=== PATIENT | female | born 1975 | race African-American/Black ===

== ENCOUNTER 2024-11-10 06:04 | Day surgery (SDC) | payer OTHER, SELFPAY ==
--- NOTE | 2024-11-07 10:02 | W.CON.GYNONC ---
Consultation
-
Date/Time Consultation Performed: 11/10/2024
Performing Provider: Harpal Woods
Chief Complaint
-
Risk reducing Salpingo-oophorectomy
History of Present Illness
48�yr�old�female�referred�to�us�from�Dr�Irving�because�of�ovarian�pain�and�BARD1�mutation.�She�states�for�several�years�she�has
been�having�pelvic�pain�and�pressure�that�had�been�off�and�on�but�the�pain�is�now�constant�and�will�increase�for�a�few�days�around
ovulation.�She�has�had�multiple�u/s�over�the�past�several�years�and�an�MRI�in�2022�which�have�been�normal.�Her�most�recent�u/s
shows�rt�ovary�3.8�cm�x1.6�x�2.5�cm.�and�a�new�.7�x.3�x.5�cm�calcification�left�ovary�has�a�1.9�cm�hemorrhagic�cyst.�She�is�s/p�a hysterectomy�for�fibroids�in�2007.�She�denies�any�bowel�or�bladder�changes�normal�colonoscopy�last�year.
She�had�an�MRI�of�the�pelvis�done,�study�shows�left adnexa�3.4�x�4.1�x�5.6�cm�unchanged.�There�is�intracystic�subacute�hemorrhage�otherwise�unchanged�dimensions.�There�is�no
mural�nodularity�or�papillary�excrescences�there�is�no�finding�for�endometriosis.�The�right�adnexal�region�is�unremarkable.�Uterus has�been�removed�there�is�no�significant�adenopathy.�Bones�joints�and�soft�tissue�otherwise�is�normal
She�is�seen�by�breast�surgeon�and�followed�with�Mammograms�and�u/s�Currently�working�with�insurance�for�coverage�for�the�MRI
PMH�� GERD HTN
Surgical�HxTAH�open myomectomy�open c/section�open cholecystectomy�laparoscopic hernia�x3�laparoscopic
OB/[id number]�
Social� nonsmoker
Family�hx Father�prostate�CA
Medications
Amlodipine
benazepril
Buspar
Hydrochlorothiazide
Metoprolol
Valtrex
Medical History
Allergies
Allergies reflect when allergies were last updated in [facility].
No Known Allergies Allergy (Unverified 11/03/24 15:43)
Physical Exam
Vital Signs / I&O
Pelvic�Examination: External�normal�labia,�urethra,�anus.� Vagina:�Normal�mucosa.� Uterus�and�cervix�absent.�Bimanual�exam�does�not�show�any�mass�or�nodularity�in�the�pelvis Adnexa:�No�pelvic�mass.� RVE:�no�masses�or�nodularity�or�fixation
General:�Well�developed,�well�nourished�patient. Atraumatic�and�normocephalic. Neck:�No�thyromegaly.�No�cervical�lymphadenopathy. Lungs:�Clear�to�auscultation.�Good�air�movement�bilaterally.
Cardiac:�Regular�rate.�Regular�rhythm.�No�murmurs�appreciated. Right�Breast:�No�masses�or�dimpling. No�masses�or�dimpling. Abdomen:�Abdomen�is�soft.�Non�tender�to�palpation.�Non�distended.�Patient�has�low�transverse�scar�in�the�suprapubic�region,
there�is�a�supraumbilical�vertical�scar�where�the�hernia�was�repaired.�A�few�laparoscopic�ports�are�well�healed�on�the�abdomen�No hernia�present. No�edema. Hematologic/Lymphatic:�No�palpable�lymphadenopathy.
Musculoskeletal:�Normal�range�of�motion.�Strength�and�Tone�are�normal. Skin:Non�jaundiced.�No�petechia.�No�purpura. Neurologic:�Speech�is�fluent.�Normal�gait�and�station.�Cranial�nerves�intact.
Results
-
Comp. Metabolic Panel (14)�-FinalOrdered by:�Norah WOODS
Glucose 142High mg/dL 70-99 [facility]
BUN 10 mg/dL 6-24 [facility]
Creat 0.53Low mg/dL 0.57-1.00 [facility]
eGFR 114 mL/min/1.73 >59 [facility]
BUN Creat Ratio 19 9-23 [facility]
Sodium 141 mmol/L 134-144 [facility]
Potassium 3.6 mmol/L 3.5-5.2 [facility]
Chloride 102 mmol/L 96-106 [facility]
CO2 25 mmol/L 20-29 [facility]
Calcium 9.7 mg/dL 8.7-10.2 [facility]
Total Protein 7.0 g/dL 6.0-8.5 [facility]
Albumin 4.1 g/dL 3.9-4.9 [facility]
Globulin 2.9 g/dL 1.5-4.5 [facility]
Total Bili <0.2 mg/dL 0.0-1.2 [facility]
Alk Phos 68 IU/L 44-121 [facility]
AST 16 IU/L 0-40 [facility]
ALT 14 IU/L 0-32 [facility]
Prothrombin Time (PT)�-FinalOrdered by:�Norah WOODS
INR 1.0 0.9-1.2 [facility]
���������������Reference�interval�is�for�non-anticoagulated�patients.
��������������������������������������������������������������������.
���������������Suggested�INR�therapeutic�range�for�Vitamin�K
���������������antagonist�therapy:
������������������Standard�Dose�(moderate�intensity
���������������������������������therapeutic�range):�������2.0�-�3.0
������������������Higher�intensity�therapeutic�range�������2.5�-�3.5
ProTime 10.7 sec 9.1-12.0 [facility]
FSH�-FinalOrdered by:�Norah WOODS
FSH 11.0 mIU/mL [facility]
������������������������������������Adult�Female�������������Range
�������������������������������������Follicular�phase������3.5�-��12.5
�������������������������������������Ovulation�phase�������4.7�-��21.5
�������������������������������������Luteal�phase����������1.7�-���7.7
�������������������������������������Postmenopausal�������25.8�-�134.8
Cancer Antigen (CA) 125�-FinalOrdered by:�Norah WOODS
CA125 12.7 U/mL 0.0-38.1 [facility]�Electrochemiluminescence�Immunoassay�(ECLIA)
���������������������������������������������������������������������.
Values�obtained�with�different�assay�methods�or�kits�cannot�be
used�interchangeably.��Results�cannot�be�interpreted�as�absolute
evidence�of�the�presence�or�absence�of�malignant�disease.
CEA�-FinalOrdered by:�Norah WOODS
CEA 2.7 ng/mL 0.0-4.7 [facility]
��������������������������������������������Nonsmokers����������<3.9
��������������������������������������������Smokers�������������<5.6
��������������������������������������������������������������������.
���������������[employer]�Electrochemiluminescence�Immunoassay
���������������(ECLIA)
��������������������������������������������������������������������.
���������������Values�obtained�with�different�assay�methods�or�kits
���������������cannot�be�used�interchangeably.��Results�cannot�be
���������������interpreted�as�absolute�evidence�of�the�presence�or
���������������absence�of�malignant�disease.
TSH reflex to T4F�-FinalOrdered by:�Norah WOODS
TSH 0.578 uIU/mL 0.450-4.500 [facility]
hCG,Beta Subunit, Qnt�-FinalOrdered by:�Norah WOODS
B-Hcg <1 mIU/mL [facility]
������������������������������������Female�(Non-)����0�-�����5
�������������������������������������������(Postmenopausal)��0�-�����8
���������������������������������������������������������������������.
������������������������������������Female�()
������������������������������������Weeks�of�Gestation
��������������������������������������������3����������������6�-����71
��������������������������������������������4���������������10�-���802
��������������������������������������������8��������������133�-��4238
��������������������������������������������4��������������627�-�09350
��������������������������������������������5�������������1208�-[id number]
��������������������������������������������5������������98131�-886895
��������������������������������������������7������������24133�-192798
�������������������������������������������67������������98642�-391020
�������������������������������������������07������������20387�-734811
�������������������������������������������58������������51619�-�46396
�������������������������������������������24������������43139�-�09176
�������������������������������������������68�������������7989�-�72863
�������������������������������������������96�������������1050�-�77714
�������������������������������������������18�������������8099�-�29785
[facility]�ECLIA�methodology
PTT, Activated�-FinalOrdered by:�Norah WOODS
aPTT 26 sec 24-33 [facility]
This�test�has�not�been�validated�for�monitoring�unfractionated�heparin
therapy.�aPTT-based�therapeutic�ranges�for�unfractionated�heparin
therapy�have�not�been�established.�For�general�guidelines�on
Heparin�monitoring,�refer�to�the�[facility]�Directory�of�Services.
LDH�-FinalOrdered by:�Norah WOODS
LDH 213 IU/L 119-226 [facility]
Performing Location:��=�[address]�[id number]��Phone:�[phone]
�������Dir:�RANI Quispe,��
Impression / Plan
-
This�is�a�49�year�old�woman�who�has�a�complex�cyst�of�ovary�which�may�be�endometriosis�or�benign.�She�has�a�complex�prior surgical�history.�She�does�have�pain�and�discomfort�related�to�this�and�would�like�to�have�surgery.
A�CT�of�abdomen�and�pelvis�will�be�recommended Blood�test�including�CMP�CBC�CA125�CEA�FSH�will�be�done We�discussed�surgery�to�be�robotic�assisted�entry�into�the�abdomen�laparoscopic�exploration,�very�likely�lysis�of�adhesions�in�order
to�gain�access�to�the�pelvis.�Bilateral�salpingo�oophorectomies�proposed.�Obviously�if�there�is�any�concern�for�metastatic�disease�it
will�be�done�at�the�same�time�and�cytoreduction�will�be�performed.�She�does�understand�that�there�is�a�possibility�of�conversion�to open.�Surgery�will�be�scheduled�in�[place]
risk�of�surgery�including�infection�bleeding�injury�to�adjacent�organs�DVT�pulmonary�embolism�and�cardiovascular�complications�as well�as�need�for�additional�treatment�was�discussed�and�reviewed�with�the�patient
[2024-11-10] VITALS (11 sets, daily range): BP systolic 111–142; BP diastolic 67–91; BMI 33.9
[2024-11-10] MEDS: CELEBREX 200 MG PO (06:28)
[2024-11-10] MEDS: HEPARIN 5000 UNITS SC (06:29)
[2024-11-10] MEDS: NEURONTIN 300 MG PO (06:29)
[2024-11-10] MEDS: TYLENOL 1000 MG PO (06:29)
[2024-11-10] MEDS: NORMOSOL-R/PLASMALYTE-A 1000 IV (06:36)
--- NOTE | 2024-11-10 10:22 | OR.RPT ---
Operative Report
Operative Report
Date of Procedure: 11/10/2024
Primary Surgeon: Harpal Woods MD
Assisting Surgeon: Catrina Jolly PA-C, RAZIA Bardales
Pre-op Diagnosis: LLQ mass
Post-op Diagnosis: Hemorrhagic corpus luteum of left ovary
Procedure Performed:
Robotic assisted laparoscopic BSO, 87825
Robotic assisted lap Extensive lysis of intra abdominal adhesions including enterolysis, 51000
Robotic assisted laparoscopic Suture repair of ileum serosa [id number]
Anesthesia Type: General Endotracheal intubation, transversus abdominis plane block
Specimen / Cultures: Right and left tube and ovary, pelvic washings, posterior cul-de-sac cyst
Estimated Blood Loss: 100 cc
Complications: None
Operative Findings: There is extensive adhesions of omentum to anterior abdominal wall mesh from repair of prior hernia, there is extensive adhesions of loop of ileum to right ovary as well as to pelvic sidewall, right ovary has benign cystic masses
associated with it, the appendix was adherent to the right ovarian vessels, left ovary appears to be adherent to the vaginal apex, has multiple cystic component, extensively adherent to the pelvic sidewall posterior cul-de-sac as well as same loop
of ileum. There are no peritoneal implants, upper abdomen including liver stomach right and left diaphragms are within normal limits. Visualized portions of the small bowel as well as appendix ascending transverse and descending colon are normal.
Frozen section of left ovary revealed hemorrhagic luteal cyst.
Procedure in detail: This patient was brought to the operating room for definitive management of symptomatic left complex ovarian mass. Her tumor markers prior to surgery were normal, she has had a prior total hysterectomy as well as ventral hernia
repair and laparoscopic cholecystectomy. Upon arrival to the operating room she was placed in supine position, general anesthesia was administered she was intubated without any difficulty arms were wrapped in foam after placement of IVs and placed
along the patient's side and she was positioned in lithotomy position using yellowfin stirrups she was prepped in the abdomen perineum and vagina Levin catheter was inserted under sterile condition the patient was draped. Timeout procedure was
completed and she received the appropriate antibiotics and DVT prophylaxis. Veress needle was inserted just below left subcostal margin and pneumoperitoneum was created up to pressure of 15 mmHg. 8 mm robotic port was placed in the left upper
quadrant and then adhesions were visualized. Under direct visualization additional robotic ports were placed initially in the left lateral abdomen, then right lateral abdomen and right upper quadrant and then by moving the camera to those ports we
were able to place a high just right of the midline 8 mm X I port at the level of falciform ligament. Robotic system was docked with the patient in Trendelenburg at 28 degrees. The first 45 minutes was spent taking adhesions down from anterior
abdominal wall along the multiple areas where previous mesh was present hemostasis was established when we came across several omental vessels once this was completely down we turned our attention to the right ovary, adhesions of the appendix to the
right infundibulopelvic ligament was taken down, the pelvic sidewall peritoneum was opened, the course of the ureter was identified in the retroperitoneum and a window was created between IP ligament and ureter. IP ligament was sealed 3 times and
divided with traction on the IP ligament I was able to identify the exact location of the right ovary right ovarian adhesions initially to the mesentery of the small bowel loop in the pelvis was taken down and then the pelvic sidewall adhesions were
taken down until it was completely free. The right ovary was placed in a bag and parked in the right lower quadrant for future retrieval. Attention was turned to the left ovary, and left pelvic sidewall was opened, the infundibulopelvic ligament
was identified, we went ahead and created a window between IP ligament and left ureter and the IP ligament was skeletonized and sealed and divided, adhesions between the left ovary and pelvic sidewall were taken down. Extensive adhesions to actual
loop of small bowel were sharply excised, we recognized that there was a serosal tear in the ileum, additional very fibrotic adhesions to the vaginal cuff was also encountered and these were taken down we also took down the adhesions to the
posterior cul-de-sac and recognize that there was a cystic implant in the posterior cul-de-sac this was separately removed and submitted to pathology. I placed the left ovary in a laparoscopic bag for future retrieval. The pelvis was irrigated
copiously 3 sutures of 3-0 Vicryl was used to repair the serosa of loop of ileum in the direction of small bowel in parallel. Reexamined the small and large bowel for any additional injury and there were none and we prepared for removal of the
specimens by undocking the robotic system. The specimen was repaired brought out through the midline incision, the fascia was extended to approximately 2 cm. Right tube and ovary as well as left tube and ovary was extracted from the site. We used
the Alfredo Cadet system to place 4 sutures on the fascia with 0 Vicryl to reapproximate fascia. Subcutaneous tissue was irrigated and all port sites and all ports were removed and fascia and skin incisions were closed with 4-0 Monocryl in a
subcuticular fashion. Frozen section of the ovary revealed a hemorrhagic luteal cyst and hence no additional staging procedures were performed. We did inject 20 cc of quarter percent Marcaine in the midline incision where fascia was opened and
increased in size. Patient was awakened and returned back to recovery room stable awake extubated condition. Counts of laps instruments and needle was correct x 2. I was present and scrubbed for entire procedure as dictated above
Disposition: To the PACU stable awake extubated
[2024-11-10] MEDS: SUBLIMAZE 50 MCG IV (10:34)
[2024-11-10] MEDS: SUBLIMAZE 25 MCG IV (10:48)
[2024-11-10] MEDS: ROXICODONE 5 MG PO (12:05)
== END 2024-11-10 13:52 | disposition home or self-care (01) ==
LOC: SDS 06:04
PROVIDERS: ATTENDING PHYSICIAN Obstetrics & Gynecology Gynecologic Oncology
DX: N83.12 Corpus luteum cyst of left ovary (principal); N83.201 Unspecified ovarian cyst, right side; K66.0 Peritoneal adhesions (postprocedural) (postinfection); Z90.710 Acquired absence of both cervix and uterus
CPT/HCPCS: 58661; 88305; 88332; 86850; 86900; 86901; 88112; 88331